=== PATIENT | female | born 1965 | race African-American/Black ===

== ENCOUNTER 2019-09-08 03:01 | Inpatient (IN) | payer BC ==
[~2019-09-08] VITALS: Ht 149.9 cm; Wt 57.2 kg
[~2019-09-08 03:01] MED LIST: AMARYL2 MG PO; DOXYCYCLINE 10100 MG PO; METFORMIN HCL500 MG PO; NAPROSYN500 MG PO
[2019-09-08 03:04] VITALS: BP 138/77
[2019-09-08 03:44] LABS: ABSOLUTE NEUTROPHILS 13.1 thou/uL (1.4-8.2); BASOPHILS 0.2 % (0.0-2.0); EOSINOPHILS 0.3 % (0.0-3.0); HEMATOCRIT 41.5 % (37.0-47.0); HEMOGLOBIN 13.4 gm/dL (12.0-15.0); LYMPHOCYTES 15.4 % (24.0-44.0); MCH 25.5 pg (26.0-34.0); MCHC 32.3 g/dL (28.0-37.0); MCV 79.1 fL (80.0-100.0); MONOCYTES 8.3 % (1.0-8.0); PLATELET COUNT 757 thou/uL (150-400); POLYS 75.8 % (36.0-66.0); RBC 5.25 mil/uL (4.20-5.00); RDW 14.1 % (10.5-14.5); WBC 17.2 thou/uL (4.0-11.0)
[2019-09-08 03:50] LABS: CALCIUM 9.5 mg/dL (8.5-10.1); CREATININE 1.3 mg/dL (0.6-1.0); MAGNESIUM 1.4 mg/dL (1.8-2.4)
[2019-09-08 03:53] LABS: POTASSIUM 2.9 mmol/L (3.5-5.1)
[2019-09-08 03:57] LABS: LIPASE 234 U/L (73-393); TROPONIN-I <0.06 ng/mL (<0.06)
[2019-09-08 04:26] LABS: ALBUMIN 3.5 g/dL (3.4-5.0); DIRECT BILIRUBIN 0.2 mg/dL (<0.1-0.2); TOTAL BILIRUBIN 0.8 mg/dL (<0.1-1.0); TOTAL PROTEIN 7.9 g/dL (6.4-8.2)
[2019-09-08 05:48] VITALS: BP 110/62
[2019-09-08 06:30] VITALS: BP 130/55
--- NOTE | 2019-09-08 08:05 | EKG ---
[facility] [place] [address] [address] ELECTROCARDIOGRAM REPORT Name: HEMANT CARPENTER Room #: 219-P ADM IN M.R.#: [id number] Admission: 09/08/19 Attend Phys: Peter Carrion MD Discharge: Date of : 67 Report #: [id number] THIS REPORT FOR: cc: Marshall Patel K. Steven DO Lundgren, Craig H. MD [facility] ~ THIS REPORT FOR: //name// [facility] ED Test Date: 2019-09-08 Test Time: 03:39:10 Pat Name: HEMANT CARPENTER Department: Room: 219 Gender: F Blood Tester: NO : 1965 Requested By: Philip Cheatham Order Number: [id number] MD: Haroldo Lemus Measurements Intervals [place] Rate: 102 P: 73 FL: 121 QRS: -47 QRSD: 85 T: 24 QT: 338 QTc: 441 Interpretive Statements Sinus tachycardia Abnormal R-wave progression, late transition Inferior infarct, old No previous ECG available for comparison Electronically Signed On 09-08-2019 8:03:46 CDT by Haroldo Lemus [email or web address] <ELECTRONICALLY SIGNED> By: Haroldo Lemus MD, FACC 09/08/19 [id number] Haroldo Lemus MD, [facility] /EPI
[2019-09-08 13:33] LABS: URINE BILIRUBIN NEGATIVE (Negative); URINE BLOOD NEGATIVE (Negative); URINE CLARITY CLEAR; URINE COLOR YELLOW; URINE GLUCOSE-RANDOM* 3+ (Negative); URINE KETONES 1+ (Negative); URINE LEUKOCYTES-REFLEX NEGATIVE (Negative); URINE NITRITE-REFLEX NEGATIVE (Negative); URINE PROTEIN (DIPSTICK) NEGATIVE (Negative); URINE SPECIFIC GRAVITY 1.025 (1.005-1.035); URINE UROBILINOGEN 0.2 E.U./dl (0.2-1.0)
[2019-09-08 16:50] VITALS: BP 118/68
[2019-09-08 17:48] LABS: MAGNESIUM 4.1 mg/dL (1.8-2.4); POTASSIUM 3.6 mmol/L (3.5-5.1)
[2019-09-08 19:45] VITALS: BP 118/68; BP 132/76
[2019-09-09] VITALS (7 sets, daily range): BP systolic 111–138; BP diastolic 65–78
[2019-09-09 05:25] LABS: CALCIUM 8.7 mg/dL (8.5-10.1); CREATININE 0.9 mg/dL (0.6-1.0); MAGNESIUM 1.9 mg/dL (1.8-2.4); POTASSIUM 3.5 mmol/L (3.5-5.1)
[2019-09-09 05:54] LABS: ABSOLUTE NEUTROPHILS 10.1 thou/uL (1.4-8.2); BASOPHILS 0.3 % (0.0-2.0); EOSINOPHILS 0.4 % (0.0-3.0); HEMATOCRIT 34.4 % (37.0-47.0); LYMPHOCYTES 13.3 % (24.0-44.0); MCH 25.9 pg (26.0-34.0); MCHC 32.6 g/dL (28.0-37.0); MCV 79.6 fL (80.0-100.0); MONOCYTES 10.4 % (1.0-8.0); POLYS 75.6 % (36.0-66.0); RBC 4.32 mil/uL (4.20-5.00); RDW 13.9 % (10.5-14.5); WBC 13.4 thou/uL (4.0-11.0)
[2019-09-09 06:11] LABS: HEMOGLOBIN 11.2 gm/dL (12.0-15.0); PLATELET COUNT 516 thou/uL (150-400)
[2019-09-10 00:15] VITALS: BP 130/66
[2019-09-10 01:07] LABS: GLYCOHEMOGLOBIN (HGB A1C) 13.8 % (4.8-5.6)
[2019-09-10 04:45] VITALS: BP 135/69
[2019-09-10 08:30] VITALS: BP 122/77
--- NOTE | 2019-09-10 10:12 | HC ---
[facility] [place] [address] [address] CONSULTATION Name: HEMANT CARPENTER Room #: 219-P ADM IN M.R.#: [id number] Admission: 09/08/19 Attend Phys: Peter Carrion MD Discharge: Date of : 67 Report #: [id number] THIS REPORT FOR: cc: Marshall Patel K. Steven DO Al-Mubaslat, Ahmad MD ~ CC: Peter Patel DATE OF SERVICE: 09/09/2019 ENDOCRINE CONSULTATION NOTE CONSULTING PHYSICIAN: Dr. Carrion. REASON FOR CONSULTATION: Uncontrolled type 2 diabetes mellitus. HISTORY OF PRESENT ILLNESS: This is a 54-year-old female patient whose medical background is significant for multiple issues including ulcerative colitis, a distant history of pancreatitis, hyperlipidemia, as well as type 2 diabetes mellitus. The patient presented yesterday with complaints of progressive nausea, vomiting, diarrhea as well as abdominal discomfort and was admitted for further care and monitoring. I am consulted to assist with the issue of uncontrolled hyperglycemia. When the patient was questioned about her diabetes history, she indicates that she has had it for 7 years. She is currently maintained on metformin 1000 mg b.i.d. and glimepiride 2 mg in the morning. When asked about her glycemic pattern at home, she indicated that she does not check her blood glucose at all at home because she does not like to stick her fingers. She does not believe that she is developing hypoglycemia on a frequent or significant bases. The patient acknowledges significant noncompliance tendency whereby she would commit to this regimen for several weeks, but then could go off it completely for over a month and at time. As per the patient's knowledge, she has not been diagnosed with diabetic retinopathy, diabetic nephropathy or neuropathy. She is not known to have coronary artery disease. She believes that her most recent hemoglobin A1c was over 13, but is not sure when that was done exactly. The patient has a distant history of pancreatitis over 19 years ago. The patient indicates that it was a single episode and without specifying the etiology of the time. No further recurrences. REVIEW OF SYSTEMS: CONSTITUTIONAL: Fatigue, tiredness, no fever, chills or body weight changes. HEENT: Negative for sore throat, sinus pain, ear drainage. PULMONARY: Negative for shortness of breath, cough or hemoptysis. [address] [address] CONSULTATION Name: HEMANT CARPENTER Room #: 219-P [facility] IN M.R.#: [id number] Admission: 09/08/19 Attend Phys: Peter Carrion MD Discharge: Date of : 67 Report #: [id number] CARDIAC: Negative for chest pain, palpitations, syncope or presyncope. GASTROINTESTINAL: Noted for abdominal pain, nausea, vomiting. NEUROLOGY: Negative for loss of consciousness, headaches or seizure activity. No major issues with severe frequent headaches. PSYCHIATRIC: Negative for delusions, hallucinations. SKIN: Negative for rash, ulceration, discoloration or other major abnormalities. Otherwise, review of systems noncontributory other than what is mentioned in HPI. PAST MEDICAL HISTORY: 1. Type 2 diabetes mellitus. 2. Ulcerative colitis. 3. Distant history of pancreatitis. 4. GERD. PAST SURGICAL HISTORY: Noted for , history of breast biopsy and bile duct surgery. OUTPATIENT MEDICATIONS: Metformin 1000 mg b.i.d., glimepiride 2 mg daily, Naprosyn p.r.n. ALLERGIES: SHE IS ALLERGIC TO MRI CONTRAST. FAMILY HISTORY: Noncontributory. SOCIAL HISTORY: The patient denies use of tobacco, alcohol or illicit drugs. She has one daughter. PHYSICAL EXAMINATION: GENERAL: Pleasant female patient who is not in apparent pain or distress. VITAL SIGNS: Blood pressure is 111/65 mmHg, heart rate is 89 beats per minute, respirations 16 per minute, temperature 36.9 degrees. CONSTITUTIONAL: The patient is sitting upright in bed, seems comfortable, not in apparent distress. HEENT: Anicteric sclerae. Intact extraocular motions. NECK: Supple, without JVD, carotid bruits or lymphadenopathy. I do not appreciate thyromegaly. CHEST: Noted for good air entry bilaterally with scattered rales. No wheezes or crackles. HEART: Regular rate and rhythm without murmurs or gallops. ABDOMEN: Soft, lax. No guarding. She has active bowel sounds. EXTREMITIES: Lower extremity exam is noted for trace ankle edema, skin breaks, ulcerations. Pedal pulses are appreciated. Sensation to light touch is largely intact. PSYCHIATRIC: Pleasant, interactive. Normal mood and affect. [address] [address] CONSULTATION Name: HEMANT CARPENTER Room #: 219-P [facility] IN M.R.#: [id number] Admission: 09/08/19 Attend Phys: Peter Carrion MD Discharge: Date of : 67 Report #: [id number] LABORATORY DATA: Blood glucose values during her hospital stay so far have ranged from 117-287 mg/dL mostly between 200 and 250 mg/dL. Otherwise, sodium 135, potassium 3.5, chloride 100, CO2 of 25, anion gap 10, BUN 2, creatinine 0.9, glucose 288, AST 11, lipase 234, total bilirubin 0.8, direct bilirubin 0.2, calcium 8.7, magnesium 1.9, alkaline phosphatase 206, ALT 24, total protein 7.9, albumin 3.5, EGFR 79. Lactic acid 1.9. Troponin negative. White blood count 13.4, hemoglobin 11.2, hematocrit 34.4, platelets 516. ASSESSMENT AND PLAN: 1. Type 2 diabetes mellitus. Uncontrolled as per her reported hemoglobin A1c. Her course has been marked by significant noncompliance including the complete cessation of antidiabetic agents for months at that time. The patient was counseled at length about the importance of achieving and maintaining adequate glycemic control in order to avoid diabetic complications which she seems to understand well. I will check a hemoglobin A1c to better understand the patient's overall level of control. The patient's history of pancreatitis precludes the use of DPP-4 inhibitors and GLP-1 analogues. In the immediate setting and given the patient's other ongoing gastrointestinal issues, I will start the patient on Levemir at a dose of 16 units daily starting today in addition to support with Humalog supplemental scale low intensity. Blood glucose monitoring will commence a.c. and at bedtime and further adjustments to her regimen will be made accordingly. I stressed the importance of routine blood glucose monitoring, which the patient has not had at all and she verbalized her understanding of this importance. Nausea and vomiting. The patient is currently on IV fluid support as well as Zofran and PPI therapy. She seems to be doing better. I will defer this aspect of care to the Hospital Medicine team. I certainly appreciate this consultation by Dr. Carrion. <ELECTRONICALLY SIGNED> By: Neil Sampson MD 09/10/19 1012 [id number] Neil Sampson MD /nt
[2019-09-10] MEDS ORDERED: PANTOPRAZOLE SO40 M1 PO (11:42)
[2019-09-10] MEDS ORDERED: ACETAMINOPHEN325 M1 PO (11:42)
[2019-09-10] MEDS ORDERED: METRONIDAZOLE500 M4 PO (11:42)
[2019-09-10] MEDS ORDERED: BUDESONIDE EC3 MG PO (11:42)
[2019-09-10] MEDS ORDERED: HYDROCODON-ACE1 EAC7 PO (11:42)
[2019-09-10] MEDS ORDERED: CIPRO500 MG PO (11:42)
[2019-09-10 11:50] VITALS: BP 114/70
[2019-09-10] MEDS ORDERED: LANTUS SUBQ (12:23)
[2019-09-10 12:51] VITALS: BP 114/70
--- NOTE | 2019-09-10 17:07 | PATH ---
[facility] [place] [address] [place] [address] PATHOLOGY RPT PROCEDURE Name: DESIRE NICHOLAS Room #: 219-P DIS IN M.R.#: [id number] Admission: 09/08/19 Date of : 67 Discharge: 09/10/19 Report #: [id number] Path Case #: [id number] [facility] Accession Number: [id number] . 01 Material submitted: . colon - RANDOM COLON BX . 01 Clinical history: . Pre-op diagnosis: Diarrhea; rectal bleeding Post-op diagnosis: Pancolitis R/O inflammatory bowel disease versus infectious colitis . 02 Diagnosis: Large intestinal mucosa, random colon, endoscopic biopsy: - Mild to moderate active colitis, see comment. - Negative for dysplasia or malignancy. [facility] 09/10/2019 1422 Local . 02 Comment: Examination shows patchy involvement with a few sampled fragments showing active ulceration, crypt abnormalities including architectural abnormalities, cryptitis as well as occasional crypt abscesses. Viral inclusions are not identified. Few fragments appear uninvolved by the active inflammation. The lamina propria is markedly cellular where involved and is comprised of lymphocytes as well as abundant plasma cells. Overall, findings are highly concerning for inflammatory bowel disease. The differential diagnosis includes diverticulitis, medication/drug included colitis, infectious-type of colitis amongst other possibilities. Please correlate clinically and follow-up as indicated. (IUV/db; 09/10/2019) . 02 Electronically signed: . Sheeba Luke MD, Pathologist NPI- [id number] . 01 Gross description: . The specimen is received in formalin, labeled "Desire Nicholas random colon biopsy". Received are six segments of pale boyd soft tissue ranging in size from 0.3 to 0.5 cm in maximum dimensions. The specimen is submitted entirely in cassette A1. (CAA; 09/09/2019) QAC/QAC 09/09/2019 1551 Local . 02 Pathologist provided ICD-10: K52.9 . 02 CPT . [place] [id number] PATHOLOGY RPT PROCEDURE Name: DESIRE NICHOLAS Room #: 219-P DIS IN M.R.#: [id number] Admission: 09/08/19 Date of : 67 Discharge: 09/10/19 Report #: [id number] Path Case #: [id number] Specimen Comment: A courtesy copy of this report has been sent to [phone] Specimen Comment: [phone], Specimen Comment: Report sent to ,DR CORBETT / DR LYMAN Performed at: [address], [place], [place] [id number] MD Tian Ortez MD Phone: [phone] Performed at: [address] [id number] MD Sheeba Luke MD Phone: [phone]
== END 2019-09-10 15:15 | disposition home or self-care (01) | DRG 385 ==
LOC: ER 03:01 → 2N 05:21 → EROBS 05:21 → 2N 06:38
PROVIDERS: Emergency Medicine; Internal Medicine; Nurse Practitioner; ADMIT Hospitalist
DX: K51.919 Ulcerative colitis, unspecified with unspecified complications (principal); N17.0 Acute kidney failure with tubular necrosis; K92.1 Melena; K82.8 Other specified diseases of gallbladder; E11.9 Type 2 diabetes mellitus without complications; K21.9 Gastro-esophageal reflux disease without esophagitis; E78.5 Hyperlipidemia, unspecified; E87.6 Hypokalemia; E83.42 Hypomagnesemia; E86.0 Dehydration; K80.50 Calculus of bile duct without cholangitis or cholecystitis without obstruction; K83.8 Other specified diseases of biliary tract; Z79.84 Long term (current) use of oral hypoglycemic drugs; Z79.899 Other long term (current) drug therapy; Z91.048 Other nonmedicinal substance allergy status; Z91.14 Patient's other noncompliance with medication regimen; N18.2 Chronic kidney disease, stage 2 (mild)
CPT/HCPCS: 10081; 62110; 62900; 70005

== ENCOUNTER 2020-04-30 19:21 | Emergency (ER) | payer BC ==
[~2020-04-30] VITALS: Ht 149.9 cm; Wt 49.0 kg
[~2020-04-30 19:21] MED LIST changes: +ACETAMINOPHEN325 M1 PO; +BUDESONIDE EC3 MG PO; +CIPRO500 MG PO; +HYDROCODON-ACE1 EAC7 PO; +LANTUS SUBQ; +METRONIDAZOLE500 M4 PO; +PANTOPRAZOLE SO40 M1 PO
[2020-04-30] MEDS ORDERED: LANTUS SUBQ (20:14)
[2020-04-30] MEDS ORDERED: MESALAMINE4 GM/60 M2 PO (20:15)
[2020-04-30] MEDS ORDERED: LIPITOR 20 MG T20 M1 PO (20:15)
[2020-04-30] MEDS ORDERED: RAYOS5 MG PO (20:17)
[2020-04-30 20:38] LABS: CALCIUM 9.4 mg/dL (8.5-10.1); CREATININE 1.2 mg/dL (0.6-1.0); POTASSIUM 3.7 mmol/L (3.5-5.1)
[2020-04-30 20:41] LABS: HEMATOCRIT 38.1 % (37.0-47.0); MCHC 31.6 g/dL (28.0-37.0); MCV 79.3 fL (80.0-100.0); RBC 4.81 mil/uL (4.20-5.00); RDW 14.2 % (10.5-14.5); WBC 22.1 thou/uL (4.0-11.0)
[2020-04-30 20:44] LABS: ALBUMIN 3.4 g/dL (3.4-5.0); DIRECT BILIRUBIN 0.2 mg/dL (<0.1-0.2); TOTAL BILIRUBIN 1.4 mg/dL (0.2-1.0); TOTAL PROTEIN 7.7 g/dL (6.4-8.2)
[2020-04-30 20:56] LABS: URINE BILIRUBIN NEGATIVE (Negative); URINE BLOOD TRACE (Negative); URINE CLARITY CLEAR; URINE COLOR YELLOW; URINE GLUCOSE-RANDOM* 3+ (Negative); URINE KETONES 3+ (Negative); URINE LEUKOCYTES-REFLEX NEGATIVE (Negative); URINE NITRITE-REFLEX NEGATIVE (Negative); URINE PROTEIN (DIPSTICK) NEGATIVE (Negative); URINE UROBILINOGEN 0.2 E.U./dl (0.2-1.0)
[2020-04-30 21:29] LABS: BE(vivo) -4.6 mmol/L (-2 to +3); HCO3 21.4 mmol/L (22.0-26.0); PCO2 VENOUS 42.6 mmHg (41.0-51.0); PO2 VENOUS 36.7 mmHg (35.0-45.0)
[2020-04-30 23:54] VITALS: BP 142/85
== END 2020-04-30 23:54 | disposition home or self-care (01) ==
LOC: ER 19:21
PROVIDERS: Emergency Medicine
DX: K51.90 Ulcerative colitis, unspecified, without complications (principal); E11.9 Type 2 diabetes mellitus without complications; E78.00 Pure hypercholesterolemia, unspecified; K21.9 Gastro-esophageal reflux disease without esophagitis; Z98.890 Other specified postprocedural states; Z79.2 Long term (current) use of antibiotics; Z79.899 Other long term (current) drug therapy; Z91.041 Radiographic dye allergy status

== ENCOUNTER 2020-05-10 18:33 | Emergency (ER) | payer BC ==
[~2020-05-10] VITALS: Ht 149.9 cm; Wt 49.4 kg
[~2020-05-10 18:33] MED LIST changes: +LIPITOR 20 MG T20 M1 PO; +MESALAMINE4 GM/60 M2 PO; +RAYOS5 MG PO
[2020-05-10 19:13] LABS: HEMATOCRIT 38.1 % (37.0-47.0); MCH 24.6 pg (26.0-34.0); MCHC 31.3 g/dL (28.0-37.0); MCV 78.7 fL (80.0-100.0); PLATELET COUNT 845 thou/uL (150-400); RBC 4.85 mil/uL (4.20-5.00); RDW 14.7 % (10.5-14.5); WBC 24.2 thou/uL (4.0-11.0)
[2020-05-10 19:33] LABS: CREATININE 1.2 mg/dL (0.6-1.0); POTASSIUM 3.2 mmol/L (3.5-5.1); TOTAL BILIRUBIN 1.1 mg/dL (0.2-1.0); TOTAL PROTEIN 7.5 g/dL (6.4-8.2)
[2020-05-10 19:38] LABS: CALCIUM 9.5 mg/dL (8.5-10.1)
[2020-05-10 19:43] LABS: ABSOLUTE NEUTROPHILS 20.8 thou/uL (1.4-8.2)
[2020-05-10 19:44] LABS: ANISOCYTOSIS 1+
[2020-05-10] MEDS ORDERED: BUDESONIDE ER9 MG PO (22:32)
[2020-05-10] MEDS ORDERED: EFFER-K 20 MEQ20 ME1 PO (22:49)
[2020-05-10 23:19] VITALS: BP 149/79
== END 2020-05-10 23:31 | disposition home or self-care (01) ==
LOC: ER 18:33
PROVIDERS: Physician Assistant
DX: K51.90 Ulcerative colitis, unspecified, without complications (principal); E87.6 Hypokalemia; E11.65 Type 2 diabetes mellitus with hyperglycemia; K21.9 Gastro-esophageal reflux disease without esophagitis; Z79.4 Long term (current) use of insulin; Z79.899 Other long term (current) drug therapy; Z91.048 Other nonmedicinal substance allergy status